=== PATIENT | female | born 2000 | race Caucasian/White ===

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

== ENCOUNTER 2019-02-19 02:42 | Emergency (ER) | payer OTHER ==
[~2019-02-19] VITALS: Ht 170.2 cm; Wt 79.5 kg
[2019-02-19 02:50] VITALS: BP 149/67
[2019-02-19] MEDS ORDERED: acetaminophen 325mg tablet PO ONE (03:00)
== END 2019-02-19 03:32 | disposition home or self-care (01) ==
LOC: ER 02:43
DX: S60.042A Contusion of left ring finger without damage to nail, initial encounter (principal); S80.212A Abrasion, left knee, initial encounter; S80.211A Abrasion, right knee, initial encounter; J45.909 Unspecified asthma, uncomplicated; Z79.899 Other long term (current) drug therapy; W01.0XXA Fall on same level from slipping, tripping and stumbling without subsequent striking against object, initial encounter; Y93.89 Activity, other specified; Y92.89 Other specified places as the place of occurrence of the external cause; Y99.8 Other external cause status
CPT/HCPCS: 73140; 99284